=== PATIENT | male | born 1955 | race Caucasian/White ===

== ENCOUNTER 2018-05-01 16:20 | Emergency (ER) | payer OTHER ==
[~2018-05-01 16:20] MED LIST: AMITRIPTYLINE H10 MG PO; COLACE100 MG PO; HYDROXYCHLOROQ200 M1 PO; LOSARTAN POTASS50 MG PO; METHYLPREDNISOLO4 MG PO; METOPROLOL TART50 MG PO; PANTOPRAZOLE SO40 MG PO; PREDNISONE10 MG PO; TRAMADOL HYDROC50 MG PO; WARFARIN SODIUM2 MG PO
== END 2018-05-01 17:00 | disposition admitted as inpatient to this hospital (09) ==
LOC: ERH 16:20
DX: Z76.0 Encounter for issue of repeat prescription (principal)